=== PATIENT | male | born 1985 ===

== ENCOUNTER 2024-03-05 06:24 | Day surgery (SDC) | payer OTHER, SELFPAY ==
[2024-03-05] VITALS (9 sets, daily range): BP systolic 118–139; BP diastolic 64–78; BMI 37.4
[2024-03-05] MEDS: CELEBREX 200 MG PO (08:58)
[2024-03-05] MEDS: TYLENOL 1000 MG PO (08:58)
[2024-03-05] MEDS: NORMOSOL-R/PLASMALYTE-A 1000 IV (08:58)
--- NOTE | 2024-03-05 11:52 | W.IMMPOSTOP ---
Addendum entered and electronically signed by Valente Liz MD 03/05/24 15:10:
Error. It should read: 'small right *anterior* internal hemorrhoid'
Original Note:
Surgical Immed Post Op Note
-
Primary Surgeon: Valente Liz MD
Assisting Surgeon: None
Pre-op Diagnosis: Bleeding internal hemorrhoids
Post-op Diagnosis: Bleeding internal hemorrhoids
Procedure Performed: Exam under anesthesia, closed hemorrhoidectomy x 1, suture ligation of hemorrhoid x 1, suture ligation with hemorrhoidopexy x 1, bilateral pudendal nerve block
Anesthesia Type: Sedation with spinal and local
Specimen / Cultures: Right lateral hemorrhoid
Estimated Blood Loss: 20 mL
Complications: None
Operative Findings: Moderate-sized mixed component right lateral hemorrhoid with partial prolapse, performed Jaramillo hemorrhoidectomy; small right posterior internal hemorrhoid, performed suture ligation; small to moderate-sized internal hemorrhoid
in the left lateral position with small external component, performed hemorrhoidopexy; controlled ooze from hemorrhoidectomy suture line with [id number] 2-0 Vicryl; performed bilateral pudendal nerve block; left Surgicel within the anal canal
prophylactically
--- NOTE | 2024-03-05 11:55 | OR.RPT ---
Operative Report
Operative Report
DATE OF OPERATION: 03/05/2024
SURGEON: Valente Liz MD
PREOPERATIVE DIAGNOSIS: Bleeding internal hemorrhoid
POSTOPERATIVE DIAGNOSIS: Bleeding internal hemorrhoids
OPERATION: Exam under anesthesia, closed hemorrhoidectomy x1, suture hemorrhoidopexy x 1, suture ligation of hemorrhoid x 1, bilateral pudendal nerve block
ASSISTANTS:
1. None
ANESTHESIA: MAC w/ local and spinal
ESTIMATED BLOOD LOSS: 20 mL
FINDINGS:
1. Moderate-sized mixed component hemorrhoid in the right lateral position; performed closed hemorrhoidectomy
2. Small internal hemorrhoid in the right anterior position; performed suture ligation
3. Small to moderate-sized internal hemorrhoid in the left lateral position with small external component; performed suture hemorrhoidopexy
4. Incidental findings: no other concerning anorectal pathology
SPECIMENS:
1. Right lateral hemorrhoid
DRAINS: None
COMPLICATIONS: None
INDICATIONS: The patient is a 38-year-old male with prior history of hemorrhoids s/p rubber band ligations. However, his symptoms persisted and was found to have moderate-sized internal hemorrhoids on bedside anoscopy. Therefore, the patient was
recommended to have surgery for recurrent symptomatic hemorrhoids. I explained that my plan is to perform a suture hemorrhoidopexy for any concerning internal hemorrhoids. However, if I identify any hemorrhoids that are not amenable to suture
hemorrhoidopexy, I may perform a formal hemorrhoidectomy. The operation was discussed with the patient in detail, including the risks, benefits and alternatives. Risks described included, but not limited to, bleeding, infection, urinary retention,
damage to nearby structures such as the anal sphincter, fecal incontinence, anal stenosis, recurrence, and anesthetic risks. The patient understood and agreed to proceed. The consent was signed and placed in the chart.
PROCEDURE IN DETAIL: The patient was taken to the operating room. Sequential compression devices were placed bilaterally. Anesthesia performed a spinal block on the stretcher. The patient was placed on the operating table in prone position.
Sedation was commenced without complication. Two seat belts were secured around the legs and upper back. The buttocks were taped apart. The perineum was shaved, prepped and draped in the usual fashion. A time-out was performed verifying the
correct patient, procedure, operative site, positioning, and special equipment.
Local anesthesia used was a mixture of 60 mL of 0.25% Marcaine with epinephrine and 0.6 mg of dexamethasone. 40 mL was injected perianally at the beginning of the case. The anorectal exam was performed assessing all four quadrants of the anal canal
using Hill-Jaramillo retractors in progressively increasing size. In the right lateral position, there was mixed�component hemorrhoid with moderate-sized internal and external components, no irritation or thrombosis. Upon retracting the
Hill-Jaramillo, there was partial prolapse of this hemorrhoid. There was a small to moderate internal hemorrhoid in the left lateral quadrant associated with a small external component. This was not irritated or thrombosed, and did not prolapse on
withdrawal of the Hill-Jaramillo retractor. There was a small internal hemorrhoid in the in the right anterior position, not irritated or bleeding.
I proceeded with an excisional hemorrhoidectomy for the right lateral hemorrhoid due to its size and mixed�component nature. I began by grasping the hemorrhoid with 3 clamps and elevating it. The anoderm was incised immediately around the distal
aspect of the hemorrhoid. Hemostasis was achieved with electrocautery. Using Metzenbaum scissors, the hemorrhoid was carefully dissected off of the sphincter complex, avoiding injury to it. A large curved clamp was placed under the hemorrhoid,
taking care to avoid clamping any sphincter. A 15 blade was used to excise the hemorrhoid off the clamp. The hemorrhoid was passed off for specimen. A 2-0 Vicryl was then thrown around the pedicle and tied down, leaving a long tail. The mucosa
was reapproximated using this 2-0 Vicryl in a running fashion to the level of the dentate line. This was then run back to the pedicle in a locking fashion. The 2-0 Vicryl was tied down to the tail around the pedicle, ligating it an additional
time. Another 2-0 Vicryl was used to close the defect of the anoderm in a running fashion. Hemostasis was confirmed.
For the small right anterior internal hemorrhoid, I performed a suture ligation. Using a 2-0 Vicryl, I ligated the hemorrhoid in a [id number] fashion. Hemostasis was assured.
For the left lateral hemorrhoid, I proceeded with suture ligation and hemorrhoidopexy. Using a Hill-Jaramillo retractor, the hemorrhoid was exposed. I ligated the pedicle of the hemorrhoid with a 2-0 Vicryl in a figure-of-8 fashion, leaving the tail
long. I took running mucosal bites of the hemorrhoid distally toward the dentate line, stopping about 1 cm above the dentate line. I tied this down to the long tail in order to pexy the hemorrhoid. Hemostasis was confirmed.
The anal canal was irrigated copiously with saline, checking for hemostasis. Some oozing was noted from the right lateral hemorrhoid suture line, which was easily controlled with a 2-0 Vicryl in a [id number] fashion. No other bleeding was
noted. The remaining 20 mL of local were injected. 5 mL was injected bilaterally for a pudendal nerve block. 10 mL was injected around the surgical site and perianally. The smallest Hill-Jaramillo was used to check hemostasis once more, which was
confirmed. Surgicel was placed in the anal canal prophylactically.
At this point, the procedure was complete. All needle, sponge and instrument counts were correct. The patient tolerated the procedure well and was transferred to the recovery room in stable condition with gauze dressing in place secured with silk
tape.
DICTATED BY: Valente Liz MD
== END 2024-03-05 13:24 | disposition home or self-care (01) ==
LOC: SDS 06:24
PROVIDERS: ATTENDING PHYSICIAN Surgery
DX: K64.8 Other hemorrhoids (principal)
CPT/HCPCS: 46945; 88304